=== PATIENT | female | born 1980 | race Hispanic/Latino ===

== ENCOUNTER 2016-11-23 08:24 | Emergency (ER) | payer OTHER ==
[~2016-11-23] VITALS: Ht 152.4 cm; Wt 45.5 kg
[~2016-11-23 08:24] MED LIST: AMOXICILLIN500 MG PO; AMPICILLIN500 MG PO; BACTRIM DS1 TAB PO; BIRTH CONTROL TAB OR; CLARITHROMYC500 M2 PO; ERYTHROMYCIN E400 MG PO; FLEXERIL PO; NAPROSYN500 MG OR; NEXIUM40 M1 PO; NO; NO HOME MEDS; NO MEDS; PEPCID20 MG PO; PERCOCET 5/325M1 TAB PO; PREVACID30 M1 PO; PREVACID30 M3 PO; PRILOSEC OTC20 MG OR; PRILOSEC20 MG/CAP PO; PROMETHAZINE25 MG OR; PROTONIX40 MG PO; ULTRAM50 M1 PO; ZOFRAN ODT4 MG PO; ZOFRAN ODT8 MG SL; ZOFRAN4 MG PO; ZOFRAN4 MG/TAB PO
[2016-11-23 09:01] LABS: HEMATOCRIT 41.9 % (37.0-47.0); HEMOGLOBIN 14.8 g/dl (12.0-16.0); IMMATURE GRANULOCYTES 0.1 % (0.0-1.0); MEAN CELL VOLUME 88.6 fL CALC (80.0-100.0); MEAN CORPUSCULAR HGB 31.3 pG CALC (26.0-32.0); MEAN CORPUSCULAR HGB CONC 35.3 g/L CALC (32.0-36.0); NEUT# 5.11 thou/uL (2.00-7.15); RED BLOOD COUNT 4.73 mill/uL (4.20-5.60); RED CELL DISTRI WIDTH 12.9 % (11.5-15.5)
[2016-11-23 09:20] LABS: ALKALINE PHOSPHATASE 79 u/l (38-126); AMYLASE 101 u/l (30-110); ANION GAP 22 (6-22 (CALC)); BILIRUBIN, TOTAL 1.9 mg/dL (0.0-1.4); BUN 5 mg/dL (7-17); BUN/CREATININE RATIO 11 (12-20 (CALC)); CALCIUM 9.8 mg/dL (8.4-10.2); CARBON DIOXIDE 25 mmol/l (22-30); CHLORIDE 103 mmol/l (95-108); CREATININE 0.5 mg/dL (0.5-1.0); ETHYL ALCOHOL 142 mg/dl (0-30); GFR > 60 ML/MIN (>=60 (CALC)); GFR FOR AFR.AMER. > 60 ML/MIN (>=60 (CALC)); GLUCOSE 92 mg/dL (65-105); LIPASE 210 u/l (23-300); POTASSIUM 3.7 mmol/l (3.5-5.1); SGOT/AST 34 u/l (14-36); SGPT/ALT 34 u/l (9-52); SODIUM 146 mmol/l (137-146); TOTAL PROTEIN 8.6 g/dL (6.3-8.2)
[2016-11-23 09:30] LABS: MYOGLOBIN 22 ng/mL (0 - 62)
[2016-11-23] MEDS ORDERED: ZOFRAN4 MG/TAB PO (12:15)
[2016-11-23] MEDS ORDERED: PROTONIX40 MG PO (12:15)
[2016-11-23 12:54] VITALS: BP 135/82
[2016-11-23 13:06] LABS: URINE BILIRUBIN - DIPSTICK NEGATIVE (NEGATIVE); URINE BLOOD DIPSTICK LARGE (NEGATIVE); URINE CLARITY SLIGHT CLOUDY; URINE COLOR YELLOW; URINE GLUCOSE - DIPSTICK NEGATIVE (NEGATIVE); URINE KETONE NEGATIVE (NEGATIVE); URINE LEUK ESTERASE SMALL (NEGATIVE); URINE NITRITE - DIPSTICK NEGATIVE (Negative); URINE PH 6.5 (4.5-8.0); URINE PROTEIN - DIPSTICK NEGATIVE (NEG-TRACE); URINE SPECIFIC GRAVITY <=1.005; URINE UROBILINOGEN - DIPSTICK 0.2 E.U./dL (0.2)
[2016-11-23 13:09] LABS: COCAINE NEGATIVE (NEGATIVE); METHADONE NEGATIVE (NEGATIVE); TETRAHYDROCANNABIONOL NEGATIVE (NEGATIVE)
[2016-11-23 13:10] LABS: BARBITURATES NEGATIVE (NEGATIVE); OXCYCODONE NEGATIVE (NEGATIVE); TRICYLIC ANTIDEPRESSANTS NEGATIVE (NEGATIVE)
[2016-11-23 13:16] LABS: URINE RBC 50-100 RBC/hpf (0-5); URINE SQUAMOUS EPITHELIAL CELL FEW EPI/hpf (0-FEW)
== END 2016-11-23 13:00 | disposition home or self-care (01) | DRG 392 ==
LOC: ED 08:24
PROVIDERS: Emergency Medicine
DX: K29.20 Alcoholic gastritis without bleeding (principal)
CPT/HCPCS: Q9967; S0164

== ENCOUNTER 2016-11-23 16:52 | Observation (INO) | payer OTHER ==
[~2016-11-23] VITALS: Ht 152.4 cm; Wt 44.2 kg
[2016-11-23 17:45] LABS: HEMATOCRIT 39.6 % (37.0-47.0); HEMOGLOBIN 13.5 g/dl (12.0-16.0); IMMATURE GRANULOCYTES 0.4 % (0.0-1.0); MEAN CORPUSCULAR HGB 30.7 pG CALC (26.0-32.0); MEAN CORPUSCULAR HGB CONC 34.1 g/L CALC (32.0-36.0); NEUT# 10.08 thou/uL (2.00-7.15); RED BLOOD COUNT 4.4 mill/uL (4.20-5.60)
[2016-11-23 18:03] LABS: ALBUMIN 5.2 g/dL (3.2-5.0); ALKALINE PHOSPHATASE 65 u/l (38-126); AMYLASE 105 u/l (30-110); ANION GAP 22 (6-22 (CALC)); BILIRUBIN, TOTAL 2.2 mg/dL (0.0-1.4); BUN 7 mg/dL (7-17); BUN/CREATININE RATIO 14 (12-20 (CALC)); CALCIUM 10.4 mg/dL (8.4-10.2); CARBON DIOXIDE 22 mmol/l (22-30); CHLORIDE 100 mmol/l (95-108); CREATININE 0.5 mg/dL (0.5-1.0); ETHYL ALCOHOL 0 mg/dl (0-30); GFR > 60 ML/MIN (>=60 (CALC)); GFR FOR AFR.AMER. > 60 ML/MIN (>=60 (CALC)); GLUCOSE 196 mg/dL (65-105); LIPASE 343 u/l (23-300); POTASSIUM 3.7 mmol/l (3.5-5.1); SGOT/AST 39 u/l (14-36); SGPT/ALT 28 u/l (9-52); SODIUM 140 mmol/l (137-146); TOTAL PROTEIN 8.6 g/dL (6.3-8.2)
[2016-11-23 21:50] VITALS: BP 128/75
[2016-11-23 23:40] VITALS: BP 116/76
[2016-11-24 04:20] VITALS: BP 132/89
[2016-11-24 06:22] LABS: HEMATOCRIT 35.3 % (37.0-47.0); MEAN CELL VOLUME 92.2 fL CALC (80.0-100.0); MEAN CORPUSCULAR HGB 31.3 pG CALC (26.0-32.0); RED BLOOD COUNT 3.83 mill/uL (4.20-5.60); RED CELL DISTRI WIDTH 13.2 % (11.5-15.5)
[2016-11-24 06:50] LABS: ALKALINE PHOSPHATASE 48 u/l (38-126); ANION GAP 14 (6-22 (CALC)); BUN 7 mg/dL (7-17); BUN/CREATININE RATIO 13 (12-20 (CALC)); CALCIUM 9.4 mg/dL (8.4-10.2); CARBON DIOXIDE 27 mmol/l (22-30); CHLORIDE 100 mmol/l (95-108); CREATININE 0.6 mg/dL (0.5-1.0); GFR > 60 ML/MIN (>=60 (CALC)); GFR FOR AFR.AMER. > 60 ML/MIN (>=60 (CALC)); GLUCOSE 88 mg/dL (65-105); LIPASE 227 u/l (23-300); POTASSIUM 3.5 mmol/l (3.5-5.1); SGOT/AST 32 u/l (14-36); SGPT/ALT 30 u/l (9-52); SODIUM 138 mmol/l (137-146); TOTAL PROTEIN 6.8 g/dL (6.3-8.2)
[2016-11-24 08:54] VITALS: BP 137/90
[2016-11-24 11:06] VITALS: BP 151/74
== END 2016-11-24 13:16 | disposition home or self-care (01) | DRG 392 ==
LOC: ED 16:52 → ED-I 20:30 → ED 21:24 → MS2 21:25
PROVIDERS: Emergency Medicine; ADMIT Internal Medicine; ATTEND Internal Medicine
DX: K29.20 Alcoholic gastritis without bleeding (principal); E86.0 Dehydration
CPT/HCPCS: G0378; J2060; Q9967; S0164

== ENCOUNTER 2016-11-28 19:22 | Emergency (ER) | payer OTHER ==
[~2016-11-28] VITALS: Ht 152.4 cm; Wt 42.0 kg
[2016-11-28] MEDS ORDERED: ULTRAM50 M1 PO (19:52)
[2016-11-28 20:03] VITALS: BP 131/77
== END 2016-11-28 20:37 | disposition home or self-care (01) | DRG 300 ==
LOC: ED 19:22
DX: T81.72XA Complication of vein following a procedure, not elsewhere classified, initial encounter (principal); L76.32 Postprocedural hematoma of skin and subcutaneous tissue following other procedure; I80.8 Phlebitis and thrombophlebitis of other sites; Y84.8 Other medical procedures as the cause of abnormal reaction of the patient, or of later complication, without mention of misadventure at the time of the procedure

== ENCOUNTER 2016-12-26 22:53 | Emergency (ER) | payer SELFPAY ==
[~2016-12-26] VITALS: Ht 152.4 cm; Wt 43.6 kg
[2016-12-26 23:37] VITALS: BP 128/81
[2016-12-27 00:07] LABS: URINE BILIRUBIN - DIPSTICK NEGATIVE (NEGATIVE); URINE BLOOD DIPSTICK NEGATIVE (NEGATIVE); URINE CLARITY SLIGHT CLOUDY; URINE COLOR YELLOW; URINE GLUCOSE - DIPSTICK NEGATIVE (NEGATIVE); URINE KETONE NEGATIVE (NEGATIVE); URINE LEUK ESTERASE NEGATIVE (NEGATIVE); URINE NITRITE - DIPSTICK NEGATIVE (Negative); URINE PROTEIN - DIPSTICK NEGATIVE (NEG-TRACE); URINE UROBILINOGEN - DIPSTICK 0.2 E.U./dL (0.2)
[2016-12-27 00:07] LABS: HEMATOCRIT 41.6 % (37.0-47.0); HEMOGLOBIN 14.2 g/dl (12.0-16.0); IMMATURE GRANULOCYTES 0.2 % (0.0-1.0); MEAN CORPUSCULAR HGB 31.1 pG CALC (26.0-32.0); MEAN CORPUSCULAR HGB CONC 34.1 g/L CALC (32.0-36.0); NEUT# 6.55 thou/uL (2.00-7.15); RED BLOOD COUNT 4.57 mill/uL (4.20-5.60); RED CELL DISTRI WIDTH 12.1 % (11.5-15.5)
[2016-12-27 00:14] LABS: ALBUMIN 5.1 g/dL (3.2-5.0); ALKALINE PHOSPHATASE 73 u/l (38-126); AMYLASE 125 u/l (30-110); ANION GAP 23 (6-22 (CALC)); BILIRUBIN, TOTAL 0.9 mg/dL (0.0-1.4); BUN 10 mg/dL (7-17); BUN/CREATININE RATIO 18 (12-20 (CALC)); CALCIUM 9.9 mg/dL (8.4-10.2); CARBON DIOXIDE 23 mmol/l (22-30); CHLORIDE 103 mmol/l (95-108); CREATININE 0.6 mg/dL (0.5-1.0); GFR > 60 ML/MIN (>=60 (CALC)); GFR FOR AFR.AMER. > 60 ML/MIN (>=60 (CALC)); GLUCOSE 98 mg/dL (65-105); LIPASE 146 u/l (23-300); POTASSIUM 3.6 mmol/l (3.5-5.1); SGOT/AST 34 u/l (14-36); SGPT/ALT 40 u/l (9-52); SODIUM 146 mmol/l (137-146); TOTAL PROTEIN 8.9 g/dL (6.3-8.2)
== END 2016-12-27 00:39 | disposition left against medical advice (07) | DRG 392 ==
LOC: ED 22:53
PROVIDERS: Emergency Medicine
DX: R10.13 Epigastric pain (principal); F10.10 Alcohol abuse, uncomplicated; Y90.6 Blood alcohol level of 120-199 mg/100 ml; Z91.19 Patient's noncompliance with other medical treatment and regimen
CPT/HCPCS: S0164

== ENCOUNTER 2017-11-11 15:29 | Emergency (ER) | payer SELFPAY ==
[~2017-11-11] VITALS: Ht 152.4 cm; Wt 44.2 kg
[2017-11-11 16:49] LABS: HEMATOCRIT 39.8 % (37.0-47.0); HEMOGLOBIN 13.9 g/dl (12.0-16.0); IMMATURE GRANULOCYTES 0.1 % (0.0-5.0); MEAN CELL VOLUME 86.9 fL CALC (80.0-100.0); MEAN CORPUSCULAR HGB 30.3 pG CALC (26.0-32.0); MEAN CORPUSCULAR HGB CONC 34.9 g/L CALC (32.0-36.0); NEUT# 4.59 thou/uL (2.00-7.15); RED BLOOD COUNT 4.58 mill/uL (4.20-5.60); RED CELL DISTRI WIDTH 12.1 % (11.5-15.5)
[2017-11-11 16:56] LABS: URINE BILIRUBIN - DIPSTICK NEGATIVE (NEGATIVE); URINE BLOOD DIPSTICK LARGE (NEGATIVE); URINE COLOR YELLOW; URINE GLUCOSE - DIPSTICK NEGATIVE (NEGATIVE); URINE KETONE NEGATIVE (NEGATIVE); URINE NITRITE - DIPSTICK NEGATIVE (Negative); URINE PROTEIN - DIPSTICK NEGATIVE (NEG-TRACE); URINE SPECIFIC GRAVITY <=1.005; URINE UROBILINOGEN - DIPSTICK 0.2 E.U./dL (0.2)
[2017-11-11 17:04] LABS: URINE CLARITY TURBID; URINE LEUK ESTERASE MODERATE (NEGATIVE)
[2017-11-11 17:06] LABS: ALBUMIN 4.8 g/dL (3.2-5.0); ALKALINE PHOSPHATASE 71 u/l (38-126); ANION GAP 21 (6-22 (CALC)); BILIRUBIN, TOTAL 1.2 mg/dL (0.0-1.4); BUN 5 mg/dL (7-17); BUN/CREATININE RATIO 11 (12-20 (CALC)); CARBON DIOXIDE 28 mmol/l (22-30); CHLORIDE 100 mmol/l (95-108); CREATININE 0.4 mg/dL (0.5-1.0); ETHYL ALCOHOL 275 mg/dl (0-30); GFR > 60 ML/MIN (>=60 (CALC)); GFR FOR AFR.AMER. > 60 ML/MIN (>=60 (CALC)); SGOT/AST 31 u/l (14-36); SGPT/ALT 31 u/l (9-52); SODIUM 145 mmol/l (137-146); TOTAL PROTEIN 8.3 g/dL (6.3-8.2)
[2017-11-11 17:14] LABS: URINE RBC 25-50 RBC/hpf (0-5)
[2017-11-11 17:15] LABS: BARBITURATES NEGATIVE (NEGATIVE); COCAINE NEGATIVE (NEGATIVE); METHADONE NEGATIVE (NEGATIVE); OXCYCODONE NEGATIVE (NEGATIVE); TETRAHYDROCANNABIONOL NEGATIVE (NEGATIVE); TRICYLIC ANTIDEPRESSANTS NEGATIVE (NEGATIVE); URINE BACTERIA FEW hpf; URINE SQUAMOUS EPITHELIAL CELL FEW EPI/hpf (0-FEW)
[2017-11-11] MEDS ORDERED: BACTRIM DS1 TAB PO (21:09)
[2017-11-11] MEDS ORDERED: PROTONIX40 MG PO (21:09)
[2017-11-11 21:27] VITALS: BP 112/67
== END 2017-11-11 21:42 | disposition home or self-care (01) | DRG 690 ==
LOC: ED 15:29
PROVIDERS: Family Medicine
DX: N39.0 Urinary tract infection, site not specified (principal); K29.20 Alcoholic gastritis without bleeding; F10.129 Alcohol abuse with intoxication, unspecified
CPT/HCPCS: S0164

== ENCOUNTER 2018-01-02 07:21 | Emergency (ER) | payer SELFPAY ==
[~2018-01-02] VITALS: Ht 152.4 cm; Wt 48.0 kg
[2018-01-02] MEDS ORDERED: ZOFRAN4 MG/5 ML PO (07:49)
[2018-01-02 07:55] LABS: HEMATOCRIT 39.9 % (37.0-47.0); HEMOGLOBIN 13.6 g/dl (12.0-16.0); IMMATURE GRANULOCYTES 0.1 % (0.0-5.0); MEAN CELL VOLUME 89.3 fL CALC (80.0-100.0); MEAN CORPUSCULAR HGB 30.4 pG CALC (26.0-32.0); MEAN CORPUSCULAR HGB CONC 34.1 g/L CALC (32.0-36.0); NEUT# 5.81 thou/uL (2.00-7.15); RED BLOOD COUNT 4.47 mill/uL (4.20-5.60); RED CELL DISTRI WIDTH 13.2 % (11.5-15.5)
[2018-01-02 08:03] LABS: ALBUMIN 4.8 g/dL (3.2-5.0); ALKALINE PHOSPHATASE 80 u/l (38-126); ANION GAP 15 (6-22 (CALC)); BILIRUBIN, TOTAL 1.5 mg/dL (0.0-1.4); BUN 5 mg/dL (7-17); BUN/CREATININE RATIO 11 (12-20 (CALC)); CARBON DIOXIDE 28 mmol/l (22-30); CHLORIDE 102 mmol/l (95-108); CREATININE 0.4 mg/dL (0.5-1.0); GFR > 60 ML/MIN (>=60 (CALC)); GFR FOR AFR.AMER. > 60 ML/MIN (>=60 (CALC)); LIPASE 146 u/l (23-300); POTASSIUM 3.8 mmol/l (3.5-5.1); SODIUM 141 mmol/l (137-146); TOTAL PROTEIN 8.6 g/dL (6.3-8.2)
[2018-01-02 08:06] LABS: SGOT/AST 63 u/l (14-36)
[2018-01-02 09:53] LABS: URINE BILIRUBIN - DIPSTICK NEGATIVE (NEGATIVE); URINE BLOOD DIPSTICK NEGATIVE (NEGATIVE); URINE COLOR YELLOW; URINE GLUCOSE - DIPSTICK 100 mg/dL (NEGATIVE); URINE KETONE NEGATIVE (NEGATIVE); URINE LEUK ESTERASE NEGATIVE (NEGATIVE); URINE NITRITE - DIPSTICK NEGATIVE (Negative); URINE PH 7.5 (4.5-8.0); URINE PROTEIN - DIPSTICK NEGATIVE (NEG-TRACE); URINE UROBILINOGEN - DIPSTICK 0.2 E.U./dL (0.2)
[2018-01-02 09:54] LABS: URINE CLARITY CLEAR
[2018-01-02] MEDS ORDERED: ONDANSETRON4 MG PO (09:59)
[2018-01-02 10:01] VITALS: BP 108/69
== END 2018-01-02 10:11 | disposition home or self-care (01) | DRG 392 ==
LOC: ED 07:21
PROVIDERS: Family Medicine
DX: K52.9 Noninfective gastroenteritis and colitis, unspecified (principal); R10.84 Generalized abdominal pain; R11.2 Nausea with vomiting, unspecified
CPT/HCPCS: Q9967

== ENCOUNTER 2018-04-07 20:22 | Emergency (ER) | payer SELFPAY ==
[~2018-04-07] VITALS: Ht 152.4 cm; Wt 45.6 kg
[~2018-04-07 20:22] MED LIST changes: +ONDANSETRON4 MG PO; +ZOFRAN4 MG/5 ML PO
[2018-04-07] MEDS ORDERED: AUGMENTIN875TAB PO (20:44)
[2018-04-07] MEDS ORDERED: PERCOCET 5/325M1 TAB PO (20:44)
[2018-04-07 20:51] VITALS: BP 111/69
== END 2018-04-07 21:15 | disposition home or self-care (01) | DRG 153 ==
LOC: ED 20:22
DX: H66.92 Otitis media, unspecified, left ear (principal); H92.02 Otalgia, left ear; R09.81 Nasal congestion; R05 Cough; R51 Headache

== ENCOUNTER 2018-06-18 19:49 | Emergency (ER) | payer SELFPAY ==
[~2018-06-18] VITALS: Ht 152.4 cm; Wt 50.0 kg
[~2018-06-18 19:49] MED LIST changes: +AUGMENTIN875TAB PO
[2018-06-18 20:18] LABS: HEMATOCRIT 42.1 % (37.0-47.0); HEMOGLOBIN 14.3 g/dl (12.0-16.0); IMMATURE GRANULOCYTES 0.2 % (0.0-5.0); MEAN CELL VOLUME 87.9 fL CALC (80.0-100.0); MEAN CORPUSCULAR HGB 29.9 pG CALC (26.0-32.0); NEUT# 9.11 thou/uL (2.00-7.15); RED BLOOD COUNT 4.79 mill/uL (4.20-5.60); RED CELL DISTRI WIDTH 12.1 % (11.5-15.5)
[2018-06-18 20:36] LABS: ALBUMIN 5.1 g/dL (3.2-5.0); ALKALINE PHOSPHATASE 86 u/l (38-126); ANION GAP 19 (6-22 (CALC)); BILIRUBIN, TOTAL 1.3 mg/dL (0.0-1.4); BUN 11 mg/dL (7-17); BUN/CREATININE RATIO 21 (12-20 (CALC)); CARBON DIOXIDE 21 mmol/l (22-30); CHLORIDE 106 mmol/l (95-108); CREATININE 0.5 mg/dL (0.5-1.0); GFR > 60 ML/MIN (>=60 (CALC)); GFR FOR AFR.AMER. > 60 ML/MIN (>=60 (CALC)); LIPASE 80 u/l (23-300); POTASSIUM 3.9 mmol/l (3.5-5.1); SGOT/AST 22 u/l (14-36); SODIUM 142 mmol/l (137-146); TOTAL PROTEIN 8.5 g/dL (6.3-8.2)
[2018-06-19] MEDS ORDERED: PRILOSEC20 MG PO (00:35)
[2018-06-19 01:30] VITALS: BP 111/66
== END 2018-06-19 01:30 | disposition home or self-care (01) | DRG 392 ==
LOC: ED 19:49
PROVIDERS: Emergency Medicine
DX: R10.13 Epigastric pain (principal); R11.2 Nausea with vomiting, unspecified; F10.20 Alcohol dependence, uncomplicated; Y90.2 Blood alcohol level of 40-59 mg/100 ml
CPT/HCPCS: S0164

== ENCOUNTER 2018-09-02 12:31 | Emergency (ER) | payer SELFPAY ==
[~2018-09-02] VITALS: Ht 152.4 cm; Wt 42.0 kg
[~2018-09-02 12:31] MED LIST changes: +PRILOSEC20 MG PO
[2018-09-02 12:57] LABS: HEMATOCRIT 42.3 % (37.0-47.0); HEMOGLOBIN 14.4 g/dl (12.0-16.0); IMMATURE GRANULOCYTES 0.2 % (0.0-5.0); MEAN CELL VOLUME 86.9 fL CALC (80.0-100.0); MEAN CORPUSCULAR HGB 29.6 pG CALC (26.0-32.0); NEUT# 4.62 thou/uL (2.00-7.15); RED BLOOD COUNT 4.87 mill/uL (4.20-5.60); RED CELL DISTRI WIDTH 12.7 % (11.5-15.5)
[2018-09-02 13:13] LABS: BARBITURATES NEGATIVE (NEGATIVE); COCAINE NEGATIVE (NEGATIVE); METHADONE NEGATIVE (NEGATIVE); TETRAHYDROCANNABIONOL NEGATIVE (NEGATIVE); TRICYLIC ANTIDEPRESSANTS NEGATIVE (NEGATIVE)
[2018-09-02 13:13] LABS: ALKALINE PHOSPHATASE 80 u/l (38-126); ANION GAP 18 (6-22 (CALC)); BILIRUBIN, TOTAL 1.3 mg/dL (0.0-1.4); BUN 5 mg/dL (7-17); BUN/CREATININE RATIO 12 (12-20 (CALC)); CHLORIDE 103 mmol/l (95-108); CREATININE 0.4 mg/dL (0.5-1.0); GFR > 60 ML/MIN (>=60 (CALC)); GFR FOR AFR.AMER. > 60 ML/MIN (>=60 (CALC)); LIPASE 122 u/l (23-300); POTASSIUM 3.9 mmol/l (3.5-5.1); SGOT/AST 36 u/l (14-36); SODIUM 145 mmol/l (137-146); TOTAL PROTEIN 8.8 g/dL (6.3-8.2)
[2018-09-02 13:14] LABS: CARBON DIOXIDE 28 mmol/l (22-30)
[2018-09-02 13:14] LABS: OXCYCODONE NEGATIVE (NEGATIVE)
[2018-09-02] MEDS ORDERED: PROTONIX40 M2 PO (14:45)
[2018-09-02 15:40] VITALS: BP 119/74
== END 2018-09-02 15:40 | disposition home or self-care (01) | DRG 392 ==
LOC: ED 12:31
PROVIDERS: Emergency Medicine
DX: K29.20 Alcoholic gastritis without bleeding (principal); F10.229 Alcohol dependence with intoxication, unspecified; Y90.8 Blood alcohol level of 240 mg/100 ml or more; R07.9 Chest pain, unspecified; R11.2 Nausea with vomiting, unspecified; R06.02 Shortness of breath; R00.0 Tachycardia, unspecified; R10.9 Unspecified abdominal pain
CPT/HCPCS: J2060

== ENCOUNTER 2018-09-03 16:31 | Emergency (ER) | payer OTHER ==
[~2018-09-03] VITALS: Ht 152.4 cm; Wt 52.0 kg
[~2018-09-03 16:31] MED LIST changes: +PROTONIX40 M2 PO
[2018-09-03 16:57] LABS: URINE BILIRUBIN - DIPSTICK NEGATIVE (NEGATIVE); URINE BLOOD DIPSTICK NEGATIVE (NEGATIVE); URINE COLOR YELLOW; URINE GLUCOSE - DIPSTICK NEGATIVE (NEGATIVE); URINE KETONE NEGATIVE (NEGATIVE); URINE LEUK ESTERASE NEGATIVE (NEGATIVE); URINE NITRITE - DIPSTICK NEGATIVE (Negative); URINE PROTEIN - DIPSTICK NEGATIVE (NEG-TRACE); URINE UROBILINOGEN - DIPSTICK 0.2 E.U./dL (0.2)
[2018-09-03 17:00] LABS: HEMATOCRIT 40.2 % (37.0-47.0); HEMOGLOBIN 13.7 g/dl (12.0-16.0); IMMATURE GRANULOCYTES 0.2 % (0.0-5.0); MEAN CELL VOLUME 88.2 fL CALC (80.0-100.0); MEAN CORPUSCULAR HGB CONC 34.1 g/L CALC (32.0-36.0); NEUT# 7.14 thou/uL (2.00-7.15); RED BLOOD COUNT 4.56 mill/uL (4.20-5.60); RED CELL DISTRI WIDTH 12.6 % (11.5-15.5)
[2018-09-03 17:04] LABS: GFR 55 ML/MIN (>=60 (CALC)); GFR FOR AFR.AMER. > 60 ML/MIN (>=60 (CALC))
[2018-09-03 17:20] LABS: ALBUMIN 4.9 g/dL (3.2-5.0); ALKALINE PHOSPHATASE 81 u/l (38-126); ANION GAP 23 (6-22 (CALC)); BILIRUBIN, TOTAL 1.5 mg/dL (0.0-1.4); BUN 6 mg/dL (7-17); BUN/CREATININE RATIO 14 (12-20 (CALC)); CARBON DIOXIDE 23 mmol/l (22-30); CHLORIDE 102 mmol/l (95-108); CREATININE 0.5 mg/dL (0.5-1.0); GFR > 60 ML/MIN (>=60 (CALC)); GFR FOR AFR.AMER. > 60 ML/MIN (>=60 (CALC)); LIPASE 162 u/l (23-300); POTASSIUM 4.2 mmol/l (3.5-5.1); SGOT/AST 38 u/l (14-36); SODIUM 144 mmol/l (137-146); TOTAL PROTEIN 8.1 g/dL (6.3-8.2)
[2018-09-03 20:21] VITALS: BP 114/56
== END 2018-09-03 20:21 | disposition short-term general hospital (02) ==
LOC: ED 16:31
PROVIDERS: Family Medicine
DX: K92.0 Hematemesis (principal); F10.10 Alcohol abuse, uncomplicated
CPT/HCPCS: J2060; J2354; Q9967; S0164

== ENCOUNTER 2018-10-12 15:06 | Emergency (ER) | payer SELFPAY ==
[~2018-10-12] VITALS: Ht 152.4 cm; Wt 50.0 kg
[2018-10-12 16:03] LABS: HEMATOCRIT 39.6 % (37.0-47.0); HEMOGLOBIN 13.6 g/dl (12.0-16.0); IMMATURE GRANULOCYTES 0.2 % (0.0-5.0); MEAN CELL VOLUME 86.8 fL CALC (80.0-100.0); MEAN CORPUSCULAR HGB 29.8 pG CALC (26.0-32.0); MEAN CORPUSCULAR HGB CONC 34.3 g/L CALC (32.0-36.0); NEUT# 5.48 thou/uL (2.00-7.15); RED BLOOD COUNT 4.56 mill/uL (4.20-5.60); RED CELL DISTRI WIDTH 12.5 % (11.5-15.5)
[2018-10-12 16:14] LABS: ALKALINE PHOSPHATASE 69 u/l (38-126); ANION GAP 21 (6-22 (CALC)); BILIRUBIN, TOTAL 1.2 mg/dL (0.0-1.4); BUN 5 mg/dL (7-17); BUN/CREATININE RATIO 12 (12-20 (CALC)); CARBON DIOXIDE 26 mmol/l (22-30); CHLORIDE 96 mmol/l (95-108); CREATININE 0.4 mg/dL (0.5-1.0); GFR > 60 ML/MIN (>=60 (CALC)); GFR FOR AFR.AMER. > 60 ML/MIN (>=60 (CALC)); LIPASE 85 u/l (23-300); SGOT/AST 24 u/l (14-36); SODIUM 139 mmol/l (137-146); TOTAL PROTEIN 8.3 g/dL (6.3-8.2)
[2018-10-12] MEDS ORDERED: MULTIVITAMIN WO1 TA1 PO (17:25)
[2018-10-12] MEDS ORDERED: CARAFATE1 GM PO (17:25)
[2018-10-12 17:28] VITALS: BP 109/56
[2018-10-12 17:31] LABS: BARBITURATES NEGATIVE (NEGATIVE); COCAINE NEGATIVE (NEGATIVE); METHADONE NEGATIVE (NEGATIVE); TETRAHYDROCANNABIONOL NEGATIVE (NEGATIVE); TRICYLIC ANTIDEPRESSANTS NEGATIVE (NEGATIVE)
[2018-10-12 17:32] LABS: OXCYCODONE NEGATIVE (NEGATIVE); URINE BILIRUBIN - DIPSTICK NEGATIVE (NEGATIVE); URINE BLOOD DIPSTICK NEGATIVE (NEGATIVE); URINE COLOR YELLOW; URINE GLUCOSE - DIPSTICK NEGATIVE (NEGATIVE); URINE KETONE NEGATIVE (NEGATIVE); URINE LEUK ESTERASE NEGATIVE (NEGATIVE); URINE NITRITE - DIPSTICK NEGATIVE (Negative); URINE PH 5.5 (4.5-8.0); URINE PROTEIN - DIPSTICK NEGATIVE (NEG-TRACE); URINE SPECIFIC GRAVITY <=1.005; URINE UROBILINOGEN - DIPSTICK 0.2 E.U./dL (0.2)
== END 2018-10-12 17:40 | disposition home or self-care (01) | DRG 392 ==
LOC: ED 15:06
DX: K29.70 Gastritis, unspecified, without bleeding (principal); F10.10 Alcohol abuse, uncomplicated

== ENCOUNTER 2019-10-21 12:40 | Emergency (ER) | payer SELFPAY ==
[~2019-10-21] VITALS: Ht 152.4 cm; Wt 50.0 kg
[~2019-10-21 12:40] MED LIST changes: +CARAFATE1 GM PO; +MULTIVITAMIN WO1 TA1 PO
[2019-10-21] MEDS ORDERED: METRONIDAZOL500 MG PO (13:39)
[2019-10-21] MEDS ORDERED: DOXYCYCL HYC100 MG PO (13:39)
[2019-10-21 13:42] LABS: URINE BILIRUBIN - DIPSTICK NEGATIVE (NEGATIVE); URINE BLOOD DIPSTICK NEGATIVE (NEGATIVE); URINE COLOR YELLOW; URINE GLUCOSE - DIPSTICK NEGATIVE (NEGATIVE); URINE KETONE NEGATIVE (NEGATIVE); URINE LEUK ESTERASE NEGATIVE (NEGATIVE); URINE NITRITE - DIPSTICK NEGATIVE (Negative); URINE PH 5.5 (4.5-8.0); URINE PROTEIN - DIPSTICK NEGATIVE (NEG-TRACE); URINE SPECIFIC GRAVITY 1.015; URINE UROBILINOGEN - DIPSTICK 0.2 E.U./dL (0.2)
[2019-10-21] MEDS ORDERED: MELOXICAM7.5 MG PO (14:05)
[2019-10-21 16:20] VITALS: BP 106/64
== END 2019-10-21 16:20 | disposition home or self-care (01) | DRG 552 ==
LOC: ED 12:40
PROVIDERS: Family Medicine
DX: M54.6 Pain in thoracic spine (principal)

== ENCOUNTER 2020-09-17 14:02 | Emergency (ER) | payer SELFPAY ==
[~2020-09-17] VITALS: Ht 152.4 cm; Wt 48.0 kg
[~2020-09-17 14:02] MED LIST changes: +DOXYCYCL HYC100 MG PO; +MELOXICAM7.5 MG PO; +METRONIDAZOL500 MG PO
[2020-09-17 14:55] LABS: HEMATOCRIT 39.7 % (37.0-47.0); IMMATURE GRANULOCYTES 0.1 % (0.0-5.0); MEAN CELL VOLUME 84.3 fL CALC (80.0-100.0); MEAN CORPUSCULAR HGB 29.7 pG CALC (26.0-32.0); MEAN CORPUSCULAR HGB CONC 35.3 g/dL CAL (32.0-36.0); NEUT# 6.12 thou/uL (2.00-7.15); RED BLOOD COUNT 4.71 mill/uL (4.20-5.60); RED CELL DISTRI WIDTH 11.7 % (11.5-15.5)
[2020-09-17 15:03] LABS: ALBUMIN 4.6 g/dL (3.2-5.0); ALKALINE PHOSPHATASE 84 u/l (38-126); AMYLASE 182 u/l (30-110); ANION GAP 15 (6-22 (CALC)); BUN 4 mg/dL (7-17); BUN/CREATININE RATIO 9 (12-20 (CALC)); CARBON DIOXIDE 28 mmol/l (22-30); CHLORIDE 96 mmol/l (95-108); CREATININE 0.5 mg/dL (0.5-1.0); ETHYL ALCOHOL 0 mg/dl (0-30); GFR > 60 ML/MIN (>=60 (CALC)); GFR FOR AFR.AMER. > 60 ML/MIN (>=60 (CALC)); LIPASE 172 u/l (23-300); POTASSIUM 3.4 mmol/l (3.5-5.1); SGOT/AST 40 u/l (14-36); SODIUM 136 mmol/l (137-146); TOTAL PROTEIN 8.2 g/dL (6.3-8.2)
[2020-09-17 15:04] LABS: BILIRUBIN, TOTAL 2.6 mg/dL (0.0-1.4)
[2020-09-17 15:13] LABS: MYOGLOBIN 47 ng/mL (0 - 62)
[2020-09-17 15:27] LABS: URINE BILIRUBIN - DIPSTICK NEGATIVE (NEGATIVE); URINE BLOOD DIPSTICK NEGATIVE (NEGATIVE); URINE COLOR YELLOW; URINE GLUCOSE - DIPSTICK NEGATIVE (NEGATIVE); URINE KETONE NEGATIVE (NEGATIVE); URINE LEUK ESTERASE NEGATIVE (NEGATIVE); URINE PH 7.5 (4.5-8.0); URINE PROTEIN - DIPSTICK NEGATIVE (NEG-TRACE); URINE SPECIFIC GRAVITY <=1.005; URINE UROBILINOGEN - DIPSTICK 0.2 E.U./dL (0.2)
[2020-09-17 15:31] LABS: URINE NITRITE - DIPSTICK NEGATIVE (Negative)
[2020-09-17] MEDS ORDERED: ULTRAM50 M1 PO (18:20)
[2020-09-17] MEDS ORDERED: ONDANSETRON4 MG PO (18:20)
[2020-09-17] MEDS ORDERED: PREVACID30 M3 PO (18:20)
[2020-09-17 18:28] VITALS: BP 126/75
== END 2020-09-17 18:37 | disposition home or self-care (01) | DRG 392 ==
LOC: ED 14:02
PROVIDERS: Emergency Medicine
DX: K29.70 Gastritis, unspecified, without bleeding (principal); F10.10 Alcohol abuse, uncomplicated; Z87.11 Personal history of peptic ulcer disease
CPT/HCPCS: Q9967; S0164

== ENCOUNTER 2020-12-15 15:20 | Emergency (ER) | payer SELFPAY ==
[~2020-12-15] VITALS: Ht 152.4 cm; Wt 46.0 kg
[2020-12-15 16:07] LABS: HEMATOCRIT 41.5 % (37.0-47.0); HEMOGLOBIN 14.2 g/dl (12.0-16.0); IMMATURE GRANULOCYTES 0.2 % (0.0-5.0); MEAN CELL VOLUME 89.2 fL CALC (80.0-100.0); MEAN CORPUSCULAR HGB 30.5 pG CALC (26.0-32.0); MEAN CORPUSCULAR HGB CONC 34.2 g/dL CAL (32.0-36.0); NEUT# 3.54 thou/uL (2.00-7.15); RED BLOOD COUNT 4.65 mill/uL (4.20-5.60); RED CELL DISTRI WIDTH 12.2 % (11.5-15.5)
[2020-12-15 16:20] LABS: ALBUMIN 4.9 g/dL (3.2-5.0); ALKALINE PHOSPHATASE 67 u/l (38-126); AMYLASE 135 u/l (30-110); ANION GAP 16 (6-22 (CALC)); BUN 6 mg/dL (7-17); BUN/CREATININE RATIO 12 (12-20 (CALC)); CARBON DIOXIDE 21 mmol/l (22-30); CHLORIDE 106 mmol/l (95-108); CREATININE 0.5 mg/dL (0.5-1.0); GFR > 60 ML/MIN (>=60 (CALC)); GFR FOR AFR.AMER. > 60 ML/MIN (>=60 (CALC)); LIPASE 109 u/l (23-300); POTASSIUM 3.8 mmol/l (3.5-5.1); SGOT/AST 27 u/l (14-36); SODIUM 139 mmol/l (137-146); TOTAL PROTEIN 8.6 g/dL (6.3-8.2)
[2020-12-15 16:21] LABS: BILIRUBIN, TOTAL 1.5 mg/dL (0.0-1.4)
[2020-12-15 16:31] LABS: MYOGLOBIN 16 ng/mL (0 - 62)
[2020-12-15 19:46] LABS: URINE BILIRUBIN - DIPSTICK NEGATIVE (NEGATIVE); URINE BLOOD DIPSTICK NEGATIVE (NEGATIVE); URINE COLOR YELLOW; URINE GLUCOSE - DIPSTICK NEGATIVE (NEGATIVE); URINE KETONE NEGATIVE (NEGATIVE); URINE LEUK ESTERASE NEGATIVE (NEGATIVE); URINE PROTEIN - DIPSTICK NEGATIVE (NEG-TRACE); URINE UROBILINOGEN - DIPSTICK 0.2 E.U./dL (0.2)
[2020-12-15 19:47] LABS: URINE NITRITE - DIPSTICK NEGATIVE (Negative)
[2020-12-15] MEDS ORDERED: PROTONIX40 M2 PO (22:36)
[2020-12-15] MEDS ORDERED: TESSALON PERLE100 MG PO (22:36)
[2020-12-15] MEDS ORDERED: ZPAK PO (22:36)
[2020-12-15 23:00] VITALS: BP 111/69
== END 2020-12-15 23:05 | disposition home or self-care (01) | DRG 203 ==
LOC: ED 15:20
PROVIDERS: Emergency Medicine
DX: J40 Bronchitis, not specified as acute or chronic (principal); K29.70 Gastritis, unspecified, without bleeding; I25.2 Old myocardial infarction; Z95.5 Presence of coronary angioplasty implant and graft; Z20.822 Contact with and (suspected) exposure to COVID-19
CPT/HCPCS: Q9967; S0164

== ENCOUNTER 2020-12-24 13:09 | Emergency (ER) | payer SELFPAY ==
[~2020-12-24] VITALS: Ht 152.4 cm; Wt 60.0 kg
[~2020-12-24 13:09] MED LIST changes: +TESSALON PERLE100 MG PO; +ZPAK PO
[2020-12-24 13:36] LABS: HEMATOCRIT 38.6 % (37.0-47.0); HEMOGLOBIN 13.2 g/dl (12.0-16.0); MEAN CELL VOLUME 88.5 fL CALC (80.0-100.0); MEAN CORPUSCULAR HGB 30.3 pG CALC (26.0-32.0); MEAN CORPUSCULAR HGB CONC 34.2 g/dL CAL (32.0-36.0); NEUT# 3.26 thou/uL (2.00-7.15); RED BLOOD COUNT 4.36 mill/uL (4.20-5.60); RED CELL DISTRI WIDTH 11.6 % (11.5-15.5)
[2020-12-24 13:54] LABS: ALBUMIN 4.6 g/dL (3.2-5.0); ALKALINE PHOSPHATASE 72 u/l (38-126); AMYLASE 117 u/l (30-110); ANION GAP 15 (6-22 (CALC)); BILIRUBIN, TOTAL 0.9 mg/dL (0.0-1.4); BUN 6 mg/dL (7-17); BUN/CREATININE RATIO 12 (12-20 (CALC)); CARBON DIOXIDE 25 mmol/l (22-30); CHLORIDE 106 mmol/l (95-108); CREATININE 0.5 mg/dL (0.5-1.0); ETHYL ALCOHOL 158 mg/dl (0-30); GFR > 60 ML/MIN (>=60 (CALC)); GFR FOR AFR.AMER. > 60 ML/MIN (>=60 (CALC)); LIPASE 134 u/l (23-300); POTASSIUM 3.9 mmol/l (3.5-5.1); SGOT/AST 30 u/l (14-36); SODIUM 142 mmol/l (137-146)
[2020-12-24 14:02] LABS: HCG SERUM/URINE (NEG/POS) NEGATIVE (NEGATIVE)
[2020-12-24] MEDS ORDERED: PRILOSEC20 MG/CAP PO (19:22)
[2020-12-24 20:00] VITALS: BP 143/83
== END 2020-12-24 20:00 | disposition home or self-care (01) | DRG 392 ==
LOC: ED 13:09
DX: K29.70 Gastritis, unspecified, without bleeding (principal); I25.2 Old myocardial infarction; Z20.822 Contact with and (suspected) exposure to COVID-19

== ENCOUNTER 2021-05-24 16:03 | Emergency (ER) | payer SELFPAY ==
[~2021-05-24] VITALS: Ht 152.4 cm; Wt 60.0 kg
[2021-05-24 16:34] LABS: HEMATOCRIT 40.7 % (37.0-47.0); HEMOGLOBIN 13.8 g/dl (12.0-16.0); IMMATURE GRANULOCYTES 0.2 % (0.0-5.0); MEAN CELL VOLUME 89.6 fL CALC (80.0-100.0); MEAN CORPUSCULAR HGB 30.4 pG CALC (26.0-32.0); MEAN CORPUSCULAR HGB CONC 33.9 g/dL CAL (32.0-36.0); NEUT# 9.35 thou/uL (2.00-7.15); RED BLOOD COUNT 4.54 mill/uL (4.20-5.60); RED CELL DISTRI WIDTH 12.4 % (11.5-15.5)
[2021-05-24 17:00] LABS: ALBUMIN 4.9 g/dL (3.2-5.0); ALKALINE PHOSPHATASE 106 u/l (38-126); ANION GAP 17 (6-22 (CALC)); BILIRUBIN, TOTAL 1.2 mg/dL (0.0-1.4); BUN 12 mg/dL (7-17); BUN/CREATININE RATIO 27 (12-20 (CALC)); CARBON DIOXIDE 23 mmol/l (22-30); CHLORIDE 105 mmol/l (95-108); CREATININE 0.4 mg/dL (0.5-1.0); GFR > 60 ML/MIN (>=60 (CALC)); GFR FOR AFR.AMER. > 60 ML/MIN (>=60 (CALC)); LIPASE 86 u/l (23-300); POTASSIUM 3.7 mmol/l (3.5-5.1); SGOT/AST 31 u/l (14-36); SODIUM 142 mmol/l (137-146); TOTAL PROTEIN 8.4 g/dL (6.3-8.2)
[2021-05-24 18:10] VITALS: BP 152/101
[2021-05-24 18:13] LABS: URINE BILIRUBIN - DIPSTICK NEGATIVE (NEGATIVE); URINE BLOOD DIPSTICK MODERATE (NEGATIVE); URINE COLOR YELLOW; URINE GLUCOSE - DIPSTICK NEGATIVE (NEGATIVE); URINE KETONE 15 mg/dL (NEGATIVE); URINE LEUK ESTERASE NEGATIVE (NEGATIVE); URINE PROTEIN - DIPSTICK 30 mg/dL (NEG-TRACE); URINE SPECIFIC GRAVITY >=1.030; URINE UROBILINOGEN - DIPSTICK 0.2 E.U./dL (0.2)
[2021-05-24 18:14] LABS: URINE NITRITE - DIPSTICK NEGATIVE (Negative)
[2021-05-24 18:22] LABS: URINE CALCIUM OXALATE CRYSTALS FEW lpf; URINE SQUAMOUS EPITHELIAL CELL FEW EPI/hpf (0-FEW); URINE WBC 0-2 WBC/hpf (0-5)
[2021-05-24] MEDS ORDERED: METRONIDAZOLE500 MG PO (19:12)
[2021-05-24] MEDS ORDERED: DOXYCYCL HYC100 M4 PO (19:12)
== END 2021-05-24 19:40 | disposition left against medical advice (07) | DRG 392 ==
LOC: ED 16:03
PROVIDERS: Family Medicine
DX: R10.13 Epigastric pain (principal); K92.0 Hematemesis; I25.2 Old myocardial infarction; R93.5 Abnormal findings on diagnostic imaging of other abdominal regions, including retroperitoneum; Z91.19 Patient's noncompliance with other medical treatment and regimen
CPT/HCPCS: J2354; Q9967; S0164

== ENCOUNTER 2021-08-03 13:36 | Observation (INO) | payer SELFPAY ==
[~2021-08-03] VITALS: Ht 152.4 cm; Wt 45.0 kg
[2021-08-03] VITALS (10 sets, daily range): BP systolic 101–129; BP diastolic 63–93
[~2021-08-03 13:36] MED LIST changes: +DOXYCYCL HYC100 M4 PO; +METRONIDAZOLE500 MG PO
[2021-08-03 14:26] LABS: HEMATOCRIT 43.7 % (37.0-47.0); HEMOGLOBIN 14.8 g/dl (12.0-16.0); MEAN CELL VOLUME 88.1 fL CALC (80.0-100.0); MEAN CORPUSCULAR HGB 29.8 pG CALC (26.0-32.0); MEAN CORPUSCULAR HGB CONC 33.9 g/dL CAL (32.0-36.0); NEUT# 5.92 thou/uL (2.00-7.15); RED BLOOD COUNT 4.96 mill/uL (4.20-5.60)
[2021-08-03 14:39] LABS: ALBUMIN 5.1 g/dL (3.2-5.0); ALKALINE PHOSPHATASE 89 u/l (38-126); ANION GAP 19 (6-22 (CALC)); BUN 8 mg/dL (7-17); BUN/CREATININE RATIO 15 (12-20 (CALC)); CARBON DIOXIDE 20 mmol/l (22-30); CHLORIDE 108 mmol/l (95-108); CREATININE 0.5 mg/dL (0.5-1.0); GFR > 60 ML/MIN (>=60 (CALC)); GFR FOR AFR.AMER. > 60 ML/MIN (>=60 (CALC)); POTASSIUM 3.4 mmol/l (3.5-5.1); SGOT/AST 31 u/l (14-36); SODIUM 144 mmol/l (137-146); TOTAL PROTEIN 8.9 g/dL (6.3-8.2)
[2021-08-04 04:31] VITALS: BP 96/50
[2021-08-04 05:50] LABS: URINE BILIRUBIN - DIPSTICK NEGATIVE (NEGATIVE); URINE BLOOD DIPSTICK NEGATIVE (NEGATIVE); URINE COLOR YELLOW; URINE GLUCOSE - DIPSTICK 500 mg/dL (NEGATIVE); URINE KETONE NEGATIVE (NEGATIVE); URINE LEUK ESTERASE NEGATIVE (NEGATIVE); URINE PROTEIN - DIPSTICK NEGATIVE (NEG-TRACE); URINE SPECIFIC GRAVITY 1.025; URINE UROBILINOGEN - DIPSTICK 0.2 E.U./dL (0.2)
[2021-08-04 05:51] LABS: URINE NITRITE - DIPSTICK NEGATIVE (Negative)
[2021-08-04 05:58] LABS: MEAN CELL VOLUME 91.4 fL CALC (80.0-100.0); MEAN CORPUSCULAR HGB 30.2 pG CALC (26.0-32.0); RED BLOOD COUNT 3.71 mill/uL (4.20-5.60); RED CELL DISTRI WIDTH 12.2 % (11.5-15.5)
[2021-08-04 06:01] LABS: HEMATOCRIT 33.9 % (37.0-47.0); HEMOGLOBIN 11.2 g/dl (12.0-16.0)
[2021-08-04 06:17] LABS: ANION GAP 9 (6-22 (CALC)); BUN 10 mg/dL (7-17); BUN/CREATININE RATIO 21 (12-20 (CALC)); CARBON DIOXIDE 22 mmol/l (22-30); CHLORIDE 111 mmol/l (95-108); CREATININE 0.5 mg/dL (0.5-1.0); GFR > 60 ML/MIN (>=60 (CALC)); GFR FOR AFR.AMER. > 60 ML/MIN (>=60 (CALC)); MAGNESIUM 1.9 mg/dL (1.6-2.3); POTASSIUM 3.3 mmol/l (3.5-5.1); SODIUM 139 mmol/l (137-146)
[2021-08-04 07:00] VITALS: BP 135/61
[2021-08-04 08:30] VITALS: BP 135/61
[2021-08-04 14:07] VITALS: BP 130/74
[2021-08-04 16:50] VITALS: BP 130/74
== END 2021-08-04 18:40 | disposition home or self-care (01) | DRG 391 ==
LOC: ED 13:36 → ED-I 17:01 → MS2 17:23 → ED 17:23 → MS2 18:05
PROVIDERS: Family Medicine; ADMIT Hospitalist; ATTEND Hospitalist
DX: R10.33 Periumbilical pain (principal); U07.1 COVID-19; E87.2 Acidosis; R11.2 Nausea with vomiting, unspecified; R19.7 Diarrhea, unspecified; E11.9 Type 2 diabetes mellitus without complications; I25.2 Old myocardial infarction; F10.20 Alcohol dependence, uncomplicated; Z23 Encounter for immunization
CPT/HCPCS: G0378; J1650; J2060; Q9967; S0164

== ENCOUNTER 2021-09-28 13:41 | Emergency (ER) | payer MEDICAID ==
[~2021-09-28] VITALS: Ht 152.4 cm; Wt 45.4 kg
[2021-09-28 14:09] LABS: HEMATOCRIT 38.2 % (37.0-47.0); IMMATURE GRANULOCYTES 0.1 % (0.0-5.0); MEAN CELL VOLUME 89.3 fL CALC (80.0-100.0); MEAN CORPUSCULAR HGB 30.4 pG CALC (26.0-32.0); NEUT# 5.16 thou/uL (2.00-7.15); RED BLOOD COUNT 4.28 mill/uL (4.20-5.60); RED CELL DISTRI WIDTH 12.6 % (11.5-15.5)
[2021-09-28 14:23] LABS: ALBUMIN 4.7 g/dL (3.2-5.0); ALKALINE PHOSPHATASE 66 u/l (38-126); ANION GAP 16 (6-22 (CALC)); BUN 8 mg/dL (7-17); BUN/CREATININE RATIO 15 (12-20 (CALC)); CARBON DIOXIDE 23 mmol/l (22-30); CHLORIDE 103 mmol/l (95-108); CREATININE 0.5 mg/dL (0.5-1.0); GFR FOR AFR.AMER. > 60 ML/MIN (>=60 (CALC)); GFR OTHER RACES > 60 ML/MIN (>=60 (CALC)); POTASSIUM 3.5 mmol/l (3.5-5.1); SGOT/AST 25 u/l (14-36); SODIUM 139 mmol/l (137-146)
[2021-09-28] MEDS ORDERED: PROTONIX40 M2 PO (19:54)
[2021-09-28] MEDS ORDERED: ONDANSETRON4 MG PO (19:54)
[2021-09-28 20:16] VITALS: BP 118/81
== END 2021-09-28 20:22 | disposition home or self-care (01) ==
LOC: ED 13:41
PROVIDERS: Family Medicine
DX: K29.20 Alcoholic gastritis without bleeding (principal); E11.9 Type 2 diabetes mellitus without complications; Y90.7 Blood alcohol level of 200-239 mg/100 ml; Z20.822 Contact with and (suspected) exposure to COVID-19
CPT/HCPCS: Q9967; S0164

== ENCOUNTER 2021-11-01 17:14 | Emergency (ER) | payer MEDICAID ==
[~2021-11-01] VITALS: Ht 152.4 cm; Wt 47.0 kg
[2021-11-01 17:24] VITALS: BP 127/83
[2021-11-01 17:30] VITALS: BP 118/82
[2021-11-01 17:44] LABS: HEMATOCRIT 39.2 % (37.0-47.0); HEMOGLOBIN 12.9 g/dl (12.0-16.0); IMMATURE GRANULOCYTES 0.1 % (0.0-5.0); MEAN CORPUSCULAR HGB 29.9 pG CALC (26.0-32.0); MEAN CORPUSCULAR HGB CONC 32.9 g/dL CAL (32.0-36.0); NEUT# 5.46 thou/uL (2.00-7.15); RED BLOOD COUNT 4.31 mill/uL (4.20-5.60); RED CELL DISTRI WIDTH 12.6 % (11.5-15.5)
[2021-11-01 18:02] LABS: PROTHROMBIN TIME 10.4 SECONDS (9.0-12.5)
[2021-11-01 18:03] LABS: ALBUMIN 4.3 g/dL (3.2-5.0); ALKALINE PHOSPHATASE 65 u/l (38-126); ANION GAP 13 (6-22 (CALC)); BUN 11 mg/dL (7-17); BUN/CREATININE RATIO 15 (12-20 (CALC)); CARBON DIOXIDE 25 mmol/l (22-30); CHLORIDE 108 mmol/l (95-108); CREATININE 0.8 mg/dL (0.5-1.0); GFR FOR AFR.AMER. > 60 ML/MIN (>=60 (CALC)); GFR OTHER RACES > 60 ML/MIN (>=60 (CALC)); POTASSIUM 3.8 mmol/l (3.5-5.1); SGOT/AST 23 u/l (14-36); SODIUM 141 mmol/l (137-146); TOTAL PROTEIN 7.4 g/dL (6.3-8.2)
[2021-11-01 18:46] LABS: URINE BILIRUBIN - DIPSTICK NEGATIVE (NEGATIVE); URINE BLOOD DIPSTICK TRACE-INTACT (NEGATIVE); URINE COLOR YELLOW; URINE GLUCOSE - DIPSTICK NEGATIVE (NEGATIVE); URINE KETONE NEGATIVE (NEGATIVE); URINE LEUK ESTERASE TRACE (NEGATIVE); URINE PROTEIN - DIPSTICK NEGATIVE (NEG-TRACE); URINE UROBILINOGEN - DIPSTICK 0.2 E.U./dL (0.2)
[2021-11-01 18:52] LABS: URINE NITRITE - DIPSTICK NEGATIVE (Negative)
[2021-11-01 22:48] VITALS: BP 127/83
== END 2021-11-01 22:48 | disposition short-term general hospital (02) | DRG 66 ==
LOC: ED 17:14
PROVIDERS: Family Medicine
DX: I63.9 Cerebral infarction, unspecified (principal); R20.2 Paresthesia of skin; R29.701 NIHSS score 1; F10.10 Alcohol abuse, uncomplicated; E11.9 Type 2 diabetes mellitus without complications; Z87.11 Personal history of peptic ulcer disease; Z20.822 Contact with and (suspected) exposure to COVID-19
CPT/HCPCS: Q9967

== ENCOUNTER 2021-12-21 17:38 | Emergency (ER) | payer SELFPAY ==
[~2021-12-21] VITALS: Ht 152.4 cm; Wt 54.5 kg
[2021-12-21 17:46] VITALS: BP 125/83
[2021-12-21 18:00] VITALS: BP 111/75
[2021-12-21 18:09] VITALS: BP 122/83
[2021-12-21 18:15] VITALS: BP 105/70
[2021-12-21 18:21] LABS: ALKALINE PHOSPHATASE 73 u/l (38-126); ANION GAP 20 (6-22 (CALC)); BILIRUBIN, TOTAL 1.4 mg/dL (0.0-1.4); BUN 5 mg/dL (7-17); BUN/CREATININE RATIO 10 (12-20 (CALC)); CARBON DIOXIDE 23 mmol/l (22-30); CHLORIDE 101 mmol/l (95-108); CREATININE 0.5 mg/dL (0.5-1.0); GFR FOR AFR.AMER. > 60 ML/MIN (>=60 (CALC)); GFR OTHER RACES > 60 ML/MIN (>=60 (CALC)); HEMOGLOBIN 14.4 g/dl (12.0-16.0); IMMATURE GRANULOCYTES 0.1 % (0.0-5.0); MEAN CORPUSCULAR HGB 29.8 pG CALC (26.0-32.0); MEAN CORPUSCULAR HGB CONC 33.5 g/dL CAL (32.0-36.0); NEUT# 4.28 thou/uL (2.00-7.15); POTASSIUM 3.9 mmol/l (3.5-5.1); RED BLOOD COUNT 4.83 mill/uL (4.20-5.60); RED CELL DISTRI WIDTH 12.3 % (11.5-15.5); SGOT/AST 37 u/l (14-36); SODIUM 140 mmol/l (137-146)
[2021-12-21 18:28] LABS: ETHYL ALCOHOL 293 mg/dl (0-30)
[2021-12-21 18:30] VITALS: BP 111/73
[2021-12-21 18:31] LABS: ALBUMIN 5.2 g/dL (3.2-5.0)
[2021-12-21 18:45] VITALS: BP 115/77
[2021-12-21] MEDS ORDERED: PROTONIX40 MG PO (20:27)
== END 2021-12-21 21:40 | disposition home or self-care (01) | DRG 392 ==
LOC: ED 17:38
PROVIDERS: Family Medicine
DX: K29.20 Alcoholic gastritis without bleeding (principal); F10.20 Alcohol dependence, uncomplicated; E11.9 Type 2 diabetes mellitus without complications; Y90.8 Blood alcohol level of 240 mg/100 ml or more; Z87.11 Personal history of peptic ulcer disease

== ENCOUNTER 2022-02-03 09:09 | Emergency (ER) | payer MEDICAID ==
[~2022-02-03] VITALS: Ht 152.4 cm; Wt 44.4 kg
[2022-02-03 09:19] VITALS: BP 131/90
[2022-02-03 09:30] VITALS: BP 120/90
[2022-02-03] MEDS ORDERED: TESSALON PERLE100 MG PO (09:32)
[2022-02-03] MEDS ORDERED: NEXIUM40 M1 PO (09:32)
[2022-02-03 09:45] VITALS: BP 117/90
[2022-02-03 09:49] VITALS: BP 117/90
== END 2022-02-03 09:59 | disposition home or self-care (01) ==
LOC: ED 09:09
DX: K29.20 Alcoholic gastritis without bleeding (principal); E11.9 Type 2 diabetes mellitus without complications; F10.10 Alcohol abuse, uncomplicated; Z87.11 Personal history of peptic ulcer disease; Z20.822 Contact with and (suspected) exposure to COVID-19

== ENCOUNTER 2022-07-26 17:47 | Emergency (ER) | payer MEDICAID ==
[~2022-07-26] VITALS: Ht 152.4 cm; Wt 50.0 kg
[2022-07-26] VITALS (21 sets, daily range): BP systolic 77–118; BP diastolic 43–77
[2022-07-26 18:26] LABS: BASO% 1.1 % (0-3); EOS% 9.9 % (0-8); HEMATOCRIT 39.6 % (37.0-47.0); HEMOGLOBIN 12.9 g/dl (12.0-16.0); IMMATURE GRANULOCYTES 0.1 % (0.0-5.0); LYMPH% 24.1 % (15-41); MEAN CELL VOLUME 85.2 fL CALC (80.0-100.0); MEAN CORPUSCULAR HGB 27.7 pG CALC (26.0-32.0); MEAN CORPUSCULAR HGB CONC 32.6 g/dL CAL (32.0-36.0); MONO% 9.1 % (2-13); NEUT# 5.58 thou/uL (2.00-7.15); NEUT% 55.7 % (42-76); RED BLOOD COUNT 4.65 mill/uL (4.20-5.60); RED CELL DISTRI WIDTH 14.5 % (11.5-15.5)
[2022-07-26 18:33] LABS: ALBUMIN 4.7 g/dL (3.2-5.0); ALKALINE PHOSPHATASE 61 u/l (38-126); ANION GAP 17 (6-22 (CALC)); BILIRUBIN, TOTAL 1.4 mg/dL (0.02-1.3); BUN 10 mg/dL (7-17); BUN/CREATININE RATIO 10 (12-20 (CALC)); CARBON DIOXIDE 22 mmol/l (22-30); CHLORIDE 102 mmol/l (95-108); GFR FOR AFR.AMER. > 60 ML/MIN (>=60 (CALC)); GFR OTHER RACES > 60 ML/MIN (>=60 (CALC)); POTASSIUM 3.5 mmol/l (3.5-5.1); SGOT/AST 28 u/l (14-36); SODIUM 138 mmol/l (137-146); TOTAL PROTEIN 7.9 g/dL (6.3-8.2)
[2022-07-26 18:34] LABS: URINE BLOOD DIPSTICK NEGATIVE (NEGATIVE); URINE COLOR YELLOW; URINE GLUCOSE - DIPSTICK NEGATIVE (NEGATIVE); URINE KETONE NEGATIVE (NEGATIVE); URINE LEUK ESTERASE TRACE (NEGATIVE); URINE PROTEIN - DIPSTICK NEGATIVE (NEG-TRACE); URINE SPECIFIC GRAVITY <=1.005; URINE UROBILINOGEN - DIPSTICK 0.2 E.U./dL (0.2)
[2022-07-26 18:40] LABS: URINE NITRITE - DIPSTICK NEGATIVE (Negative)
[2022-07-27 11:58] LABS: URINE BILIRUBIN - DIPSTICK NEGATIVE (NEGATIVE)
== END 2022-07-26 23:58 | disposition home or self-care (01) ==
LOC: ED 17:47
PROVIDERS: Family Medicine
DX: K29.20 Alcoholic gastritis without bleeding (principal); E11.9 Type 2 diabetes mellitus without complications; F10.10 Alcohol abuse, uncomplicated; Z87.11 Personal history of peptic ulcer disease; Z20.822 Contact with and (suspected) exposure to COVID-19
CPT/HCPCS: Q9967

== ENCOUNTER 2022-09-19 17:50 | Emergency (ER) | payer MEDICAID ==
[~2022-09-19] VITALS: Ht 152.4 cm; Wt 59.0 kg
[2022-09-19 18:15] VITALS: BP 111/70
[2022-09-19 18:18] LABS: BASO% 0.5 % (0-3); EOS% 2.8 % (0-8); HEMATOCRIT 40.6 % (37.0-47.0); HEMOGLOBIN 13.3 g/dl (12.0-16.0); IMMATURE GRANULOCYTES 0.2 % (0.0-5.0); LYMPH% 22.5 % (15-41); MEAN CELL VOLUME 87.7 fL CALC (80.0-100.0); MEAN CORPUSCULAR HGB 28.7 pG CALC (26.0-32.0); MEAN CORPUSCULAR HGB CONC 32.8 g/dL CAL (32.0-36.0); MONO% 5.8 % (2-13); NEUT# 6.77 thou/uL (2.00-7.15); NEUT% 68.2 % (42-76); RED BLOOD COUNT 4.63 mill/uL (4.20-5.60)
[2022-09-19 18:20] LABS: URINE BILIRUBIN - DIPSTICK NEGATIVE (NEGATIVE); URINE BLOOD DIPSTICK NEGATIVE (NEGATIVE); URINE COLOR YELLOW; URINE GLUCOSE - DIPSTICK NEGATIVE (NEGATIVE); URINE KETONE NEGATIVE (NEGATIVE); URINE LEUK ESTERASE NEGATIVE (NEGATIVE); URINE PROTEIN - DIPSTICK NEGATIVE (NEG-TRACE); URINE UROBILINOGEN - DIPSTICK 0.2 E.U./dL (0.2)
[2022-09-19 18:23] LABS: URINE NITRITE - DIPSTICK NEGATIVE (Negative)
[2022-09-19 18:30] VITALS: BP 96/52
[2022-09-19 18:32] LABS: ALBUMIN 4.9 g/dL (3.2-5.0); ALKALINE PHOSPHATASE 58 u/l (38-126); ANION GAP 16 (6-22 (CALC)); BILIRUBIN, TOTAL 1.2 mg/dL (0.02-1.3); BUN 6 mg/dL (7-17); BUN/CREATININE RATIO 11 (12-20 (CALC)); CARBON DIOXIDE 26 mmol/l (22-30); CHLORIDE 102 mmol/l (95-108); CREATININE 0.6 mg/dL (0.5-1.0); GFR FOR AFR.AMER. > 60 ML/MIN (>=60 (CALC)); GFR OTHER RACES > 60 ML/MIN (>=60 (CALC)); LIPASE 72 u/l (23-300); POTASSIUM 3.8 mmol/l (3.5-5.1); SGOT/AST 28 u/l (14-36); SODIUM 140 mmol/l (137-146)
[2022-09-19 18:45] VITALS: BP 108/74
[2022-09-19 19:15] VITALS: BP 97/55
[2022-09-19] MEDS ORDERED: OMEPRAZOLE20 MG PO (19:17)
[2022-09-19 19:22] VITALS: BP 97/55
== END 2022-09-19 19:29 | disposition home or self-care (01) ==
LOC: ED 17:50
PROVIDERS: Family Medicine
DX: K29.70 Gastritis, unspecified, without bleeding (principal); E11.9 Type 2 diabetes mellitus without complications; F10.10 Alcohol abuse, uncomplicated; Z87.11 Personal history of peptic ulcer disease

== ENCOUNTER 2022-11-07 16:47 | Emergency (ER) | payer SELFPAY ==
[~2022-11-07] VITALS: Ht 152.4 cm; Wt 48.4 kg
[2022-11-07] VITALS (13 sets, daily range): BP systolic 97–116; BP diastolic 67–77
[~2022-11-07 16:47] MED LIST changes: +OMEPRAZOLE20 MG PO
[2022-11-07 17:25] LABS: BASO% 0.9 % (0-3); EOS% 4.2 % (0-8); HEMATOCRIT 38.9 % (37.0-47.0); HEMOGLOBIN 13.2 g/dl (12.0-16.0); IMMATURE GRANULOCYTES 0.1 % (0.0-5.0); LYMPH% 24.6 % (15-41); MEAN CELL VOLUME 88.4 fL CALC (80.0-100.0); MEAN CORPUSCULAR HGB CONC 33.9 g/dL CAL (32.0-36.0); MONO% 5.6 % (2-13); NEUT# 5.02 thou/uL (2.00-7.15); NEUT% 64.6 % (42-76); RED BLOOD COUNT 4.4 mill/uL (4.20-5.60); RED CELL DISTRI WIDTH 12.9 % (11.5-15.5)
[2022-11-07 17:43] LABS: ALBUMIN 4.9 g/dL (3.2-5.0); ALKALINE PHOSPHATASE 56 u/l (38-126); ANION GAP 18 (6-22 (CALC)); BILIRUBIN, TOTAL 1.1 mg/dL (0.02-1.3); BUN 9 mg/dL (7-17); BUN/CREATININE RATIO 14 (12-20 (CALC)); CARBON DIOXIDE 21 mmol/l (22-30); CHLORIDE 106 mmol/l (95-108); CREATININE 0.7 mg/dL (0.5-1.0); GFR FOR AFR.AMER. > 60 ML/MIN (>=60 (CALC)); GFR OTHER RACES > 60 ML/MIN (>=60 (CALC)); LIPASE 58 u/l (23-300); POTASSIUM 3.7 mmol/l (3.5-5.1); SGOT/AST 28 u/l (14-36); SODIUM 142 mmol/l (137-146); TOTAL PROTEIN 8.4 g/dL (6.3-8.2)
[2022-11-07 18:37] LABS: URINE BILIRUBIN - DIPSTICK Negative (NEGATIVE); URINE BLOOD DIPSTICK Negative (NEGATIVE); URINE GLUCOSE - DIPSTICK Negative (NEGATIVE); URINE KETONE Negative (NEGATIVE); URINE LEUK ESTERASE Negative (NEGATIVE); URINE NITRITE - DIPSTICK Negative (Negative); URINE PH 5.5 (4.5-8.0); URINE PROTEIN - DIPSTICK Negative (NEG-TRACE); URINE UROBILINOGEN - DIPSTICK 0.2 E.U./dL (0.2)
[2022-11-07 18:38] LABS: URINE COLOR Yellow
[2022-11-07] MEDS ORDERED: PROTONIX40 M2 PO (20:26)
== END 2022-11-07 21:45 | disposition home or self-care (01) | DRG 392 ==
LOC: ED 16:47
PROVIDERS: Nurse Practitioner
DX: K29.20 Alcoholic gastritis without bleeding (principal); F10.10 Alcohol abuse, uncomplicated; Y90.6 Blood alcohol level of 120-199 mg/100 ml; R30.0 Dysuria; N89.8 Other specified noninflammatory disorders of vagina; Z32.01 Encounter for pregnancy test, result positive
CPT/HCPCS: S0164

== ENCOUNTER 2022-12-06 19:27 | Emergency (ER) | payer MEDICAID ==
[~2022-12-06] VITALS: Ht 152.4 cm; Wt 46.4 kg
[2022-12-06 19:53] VITALS: BP 103/68
[2022-12-06 20:00] VITALS: BP 102/57
[2022-12-06 20:13] LABS: BASO% 0.6 % (0-3); EOS% 1.2 % (0-8); HEMATOCRIT 38.2 % (37.0-47.0); HEMOGLOBIN 13.1 g/dl (12.0-16.0); IMMATURE GRANULOCYTES 0.1 % (0.0-5.0); LYMPH% 30.7 % (15-41); MEAN CORPUSCULAR HGB 30.5 pG CALC (26.0-32.0); MEAN CORPUSCULAR HGB CONC 34.3 g/dL CAL (32.0-36.0); MONO% 7.8 % (2-13); NEUT# 4.65 thou/uL (2.00-7.15); NEUT% 59.6 % (42-76); RED BLOOD COUNT 4.29 mill/uL (4.20-5.60); RED CELL DISTRI WIDTH 12.8 % (11.5-15.5)
[2022-12-06 20:13] LABS: URINE BILIRUBIN - DIPSTICK Negative (NEGATIVE); URINE BLOOD DIPSTICK Negative (NEGATIVE); URINE GLUCOSE - DIPSTICK Negative (NEGATIVE); URINE KETONE Negative (NEGATIVE); URINE LEUK ESTERASE Negative (NEGATIVE); URINE NITRITE - DIPSTICK Negative (Negative); URINE PH 5.5 (4.5-8.0); URINE PROTEIN - DIPSTICK Negative (NEG-TRACE); URINE SPECIFIC GRAVITY <=1.005; URINE UROBILINOGEN - DIPSTICK 0.2 E.U./dL (0.2)
[2022-12-06 20:15] VITALS: BP 95/60
[2022-12-06 20:19] LABS: URINE COLOR Yellow
[2022-12-06 20:30] VITALS: BP 103/60
[2022-12-06 20:31] LABS: ALBUMIN 4.7 g/dL (3.2-5.0); ALKALINE PHOSPHATASE 52 u/l (38-126); AMYLASE 113 u/l (30-110); ANION GAP 18 (6-22 (CALC)); BUN 6 mg/dL (7-17); BUN/CREATININE RATIO 11 (12-20 (CALC)); CARBON DIOXIDE 19 mmol/l (22-30); CHLORIDE 104 mmol/l (95-108); CREATININE 0.5 mg/dL (0.5-1.0); ETHYL ALCOHOL 267 mg/dl (0-30); GFR FOR AFR.AMER. > 60 ML/MIN (>=60 (CALC)); GFR OTHER RACES > 60 ML/MIN (>=60 (CALC)); LIPASE 102 u/l (23-300); SGOT/AST 31 u/l (14-36); SODIUM 138 mmol/l (137-146); TOTAL PROTEIN 8.2 g/dL (6.3-8.2)
[2022-12-06 20:34] LABS: BILIRUBIN, TOTAL 1.6 mg/dL (0.02-1.3)
[2022-12-07 00:13] VITALS: BP 103/60
[2022-12-08] MEDS ORDERED: ONDANSETRON4 MG PO (18:25)
== END 2022-12-07 00:27 | disposition home or self-care (01) ==
LOC: ED 19:27
PROVIDERS: Nurse Practitioner
DX: O20.0 Threatened abortion (principal); O99.311 Alcohol use complicating pregnancy, first trimester; F10.10 Alcohol abuse, uncomplicated; Y90.8 Blood alcohol level of 240 mg/100 ml or more; O09.521 Supervision of elderly multigravida, first trimester; O24.311 Unspecified pre-existing diabetes mellitus in pregnancy, first trimester; Z3A.01 Less than 8 weeks gestation of pregnancy; Z87.11 Personal history of peptic ulcer disease

== ENCOUNTER 2022-12-08 13:50 | Emergency (ER) | payer MEDICAID ==
[2022-12-08] VITALS (18 sets, daily range): BP systolic 86–128; BP diastolic 51–88
[~2022-12-08] VITALS: Ht 152.4 cm; Wt 54.0 kg
[2022-12-08 14:34] LABS: BASO% 0.9 % (0-3); EOS% 0.8 % (0-8); HEMATOCRIT 37.5 % (37.0-47.0); HEMOGLOBIN 12.9 g/dl (12.0-16.0); IMMATURE GRANULOCYTES 0.2 % (0.0-5.0); LYMPH% 32.6 % (15-41); MEAN CELL VOLUME 88.7 fL CALC (80.0-100.0); MEAN CORPUSCULAR HGB 30.5 pG CALC (26.0-32.0); MEAN CORPUSCULAR HGB CONC 34.4 g/dL CAL (32.0-36.0); MONO% 8.9 % (2-13); NEUT# 3.68 thou/uL (2.00-7.15); NEUT% 56.6 % (42-76); RED BLOOD COUNT 4.23 mill/uL (4.20-5.60)
[2022-12-08 14:40] LABS: ALBUMIN 4.6 g/dL (3.2-5.0); ALKALINE PHOSPHATASE 56 u/l (38-126); ANION GAP 17 (6-22 (CALC)); BILIRUBIN, TOTAL 1.9 mg/dL (0.02-1.3); BUN 5 mg/dL (7-17); BUN/CREATININE RATIO 11 (12-20 (CALC)); CARBON DIOXIDE 23 mmol/l (22-30); CHLORIDE 103 mmol/l (95-108); CREATININE 0.5 mg/dL (0.5-1.0); ETHYL ALCOHOL 275 mg/dl (0-30); GFR FOR AFR.AMER. > 60 ML/MIN (>=60 (CALC)); GFR OTHER RACES > 60 ML/MIN (>=60 (CALC)); LIPASE 128 u/l (23-300); POTASSIUM 3.9 mmol/l (3.5-5.1); SGOT/AST 34 u/l (14-36); SODIUM 139 mmol/l (137-146); TOTAL PROTEIN 7.7 g/dL (6.3-8.2)
[2022-12-08 14:41] LABS: URINE BILIRUBIN - DIPSTICK Negative (NEGATIVE); URINE BLOOD DIPSTICK Negative (NEGATIVE); URINE GLUCOSE - DIPSTICK Negative (NEGATIVE); URINE KETONE Negative (NEGATIVE); URINE LEUK ESTERASE Negative (NEGATIVE); URINE NITRITE - DIPSTICK Negative (Negative); URINE PROTEIN - DIPSTICK Negative (NEG-TRACE); URINE SPECIFIC GRAVITY <=1.005; URINE UROBILINOGEN - DIPSTICK 0.2 E.U./dL (0.2)
[2022-12-08 14:43] LABS: URINE COLOR Yellow
[2022-12-08] MEDS ORDERED: ONDANSETRON4 MG PO (18:25)
== END 2022-12-08 18:37 | disposition home or self-care (01) ==
LOC: ED 13:50
PROVIDERS: Nurse Practitioner
DX: O20.0 Threatened abortion (principal); O99.311 Alcohol use complicating pregnancy, first trimester; F10.129 Alcohol abuse with intoxication, unspecified; Y90.8 Blood alcohol level of 240 mg/100 ml or more; O09.521 Supervision of elderly multigravida, first trimester; O24.311 Unspecified pre-existing diabetes mellitus in pregnancy, first trimester; Z3A.01 Less than 8 weeks gestation of pregnancy; Z87.11 Personal history of peptic ulcer disease; Z87.19 Personal history of other diseases of the digestive system

== ENCOUNTER 2022-12-12 16:34 | Emergency (ER) | payer MEDICAID ==
[~2022-12-12] VITALS: Ht 152.4 cm; Wt 63.5 kg
[2022-12-12 16:49] VITALS: BP 137/77
[2022-12-12 17:01] LABS: BASO% 0.8 % (0-3); EOS% 0.1 % (0-8); HEMATOCRIT 36.6 % (37.0-47.0); HEMOGLOBIN 12.4 g/dl (12.0-16.0); IMMATURE GRANULOCYTES 0.1 % (0.0-5.0); LYMPH% 23.2 % (15-41); MEAN CELL VOLUME 87.6 fL CALC (80.0-100.0); MEAN CORPUSCULAR HGB 29.7 pG CALC (26.0-32.0); MEAN CORPUSCULAR HGB CONC 33.9 g/dL CAL (32.0-36.0); MONO% 5.2 % (2-13); NEUT# 5.44 thou/uL (2.00-7.15); NEUT% 70.6 % (42-76); RED BLOOD COUNT 4.18 mill/uL (4.20-5.60); RED CELL DISTRI WIDTH 12.6 % (11.5-15.5)
[2022-12-12 17:15] LABS: URINE BILIRUBIN - DIPSTICK Negative (NEGATIVE); URINE BLOOD DIPSTICK Small (NEGATIVE); URINE GLUCOSE - DIPSTICK Negative (NEGATIVE); URINE KETONE Negative (NEGATIVE); URINE LEUK ESTERASE Negative (NEGATIVE); URINE NITRITE - DIPSTICK Negative (Negative); URINE PROTEIN - DIPSTICK Negative (NEG-TRACE); URINE SPECIFIC GRAVITY 1.015; URINE UROBILINOGEN - DIPSTICK 0.2 E.U./dL (0.2)
[2022-12-12 17:23] LABS: URINE COLOR Yellow
[2022-12-12 17:24] LABS: URINE SQUAMOUS EPITHELIAL CELL MODERATE EPI/hpf (0-FEW); URINE WBC 0-2 WBC/hpf (0-5)
[2022-12-12 17:25] VITALS: BP 133/80
[2022-12-12 17:27] LABS: ALBUMIN 4.7 g/dL (3.2-5.0); ALKALINE PHOSPHATASE 56 u/l (38-126); ANION GAP 15 (6-22 (CALC)); BILIRUBIN, TOTAL 1.5 mg/dL (0.02-1.3); BUN 7 mg/dL (7-17); BUN/CREATININE RATIO 15 (12-20 (CALC)); CARBON DIOXIDE 26 mmol/l (22-30); CHLORIDE 100 mmol/l (95-108); CREATININE 0.5 mg/dL (0.5-1.0); GFR FOR AFR.AMER. > 60 ML/MIN (>=60 (CALC)); GFR OTHER RACES > 60 ML/MIN (>=60 (CALC)); LIPASE 127 u/l (23-300); POTASSIUM 3.6 mmol/l (3.5-5.1); SGOT/AST 46 u/l (14-36); SODIUM 137 mmol/l (137-146); TOTAL PROTEIN 8.3 g/dL (6.3-8.2)
[2022-12-12 18:52] VITALS: BP 134/77
[2022-12-12 19:00] VITALS: BP 134/94
[2022-12-12 19:15] VITALS: BP 134/94
== END 2022-12-12 20:24 | disposition home or self-care (01) ==
LOC: ED 16:34
PROVIDERS: Family Medicine
DX: O99.311 Alcohol use complicating pregnancy, first trimester (principal); F10.129 Alcohol abuse with intoxication, unspecified; Y90.6 Blood alcohol level of 120-199 mg/100 ml; O24.311 Unspecified pre-existing diabetes mellitus in pregnancy, first trimester; O09.521 Supervision of elderly multigravida, first trimester; Z3A.08 8 weeks gestation of pregnancy